=== PATIENT | male | born 1975 | race Caucasian/White ===

== ENCOUNTER 2016-11-25 07:32 | Emergency (ER) | payer SELFPAY ==
[~2016-11-25] VITALS: Ht 180.3 cm; Wt 90.7 kg
[2016-11-25 07:35] VITALS: BP 119/78
[2016-11-25] MEDS ORDERED: HYDR-971 PO (07:50)
[2016-11-25] MEDS ORDERED: IBUP-1060 PO (07:50)
[2016-11-25] MEDS ORDERED: AMOX500C PO (07:50)
--- NOTE | 2016-11-25 07:50 | PHYS DOC ---
Past Medical History Past Medical History: No Pertinent History Past Surgical History: No Surgical History Alcohol Use: Rarely Drug Use: None Adult General Chief Complaint Chief Complaint: DENTAL PROBLEM HPI HPI Patient is a 41 year old male presents to the ED complaining of left lower tooth pain x 2 days. Patient states he bit into a piece of pizza and felt instant pain in his tooth. Patient states he has not been able to chew anything since then. Describes pain as sharp. Rates pain as 9 out of 10 when chewing. Patient able to tolerate liquids and soft food. Denies to swelling, fever, nausea, vomiting, chest pain, shortness of breath, or dizziness. Review of Systems Review of Systems Constitutional: Denies fever or chills [] Eyes: Denies change in visual acuity, redness, or eye pain [] HENT: Denies nasal congestion or sore throat [] Respiratory: Denies cough or shortness of breath [] Cardiovascular: No additional information not addressed in HPI [] GI: Denies abdominal pain, nausea, vomiting, bloody stools or diarrhea [] : Denies dysuria or hematuria [] Musculoskeletal: Denies back pain or joint pain [] Integument: Denies rash or skin lesions [] Neurologic: Denies headache, focal weakness or sensory changes [] Endocrine: Denies polyuria or polydipsia [] Allergies Allergies Allergies Coded Allergies Type Severity Reaction Last Updated Verified No Known Drug Allergies 09/12/13 No Physical Exam Physical Exam Constitutional: Well developed, well nourished, no acute distress, non-toxic appearance. [] HENT: Normocephalic, atraumatic, bilateral external ears normal, oropharynx moist, no oral exudates, MILD LEFT LOWER DENTAL CARIES. NO SWELLING/ABSCESS OR FLUCTUANCE. nose normal. [] Eyes: PERRLA, EOMI, conjunctiva normal, no discharge. [] Neck: Normal range of motion, no tenderness, supple, no stridor. [] Cardiovascular:Heart rate regular rhythm, no murmur [] Lungs & Thorax: Bilateral breath sounds clear to auscultation [] Abdomen: Bowel sounds normal, soft, no tenderness, no masses, no pulsatile masses. [] Skin: Warm, dry, no erythema, no rash. [] Back: No tenderness, no CVA tenderness. [] Extremities: No tenderness, no cyanosis, no clubbing, ROM intact, no edema. [] Neurologic: Alert and oriented X 3, normal motor function, normal sensory function, no focal deficits noted. [] Psychologic: Affect normal, judgement normal, mood normal. [] Current Patient Data Vital Signs Vital Signs Date Time Temp Pulse Resp B/P (MAP) Pulse Ox O2 Delivery O2 Flow Rate FiO2 11/25/16 07:35 98.0 88 18 119/78 (92) 99 Room Air 98.0 EKG EKG [] Radiology/Procedures Radiology/Procedures [] Course & Med Decision Making Course & Med Decision Making Pertinent Labs and Imaging studies reviewed. (See chart for details) []Patient given dental clinic handout. No abscess or fluctuance. Amoxicillin prescribed. Discussed the importance of follow-up and reasons to return to the ED. Patient understands and agrees with plan. Dragon Disclaimer Dragon Disclaimer This electronic medical record was generated, in whole or in part, using a voice recognition dictation system. Departure Departure Impression: Primary Impression: Dental caries Additional Impression: Pain, dental Disposition: 01 HOME, SELF-CARE Condition: STABLE Referrals: REAGAN ZAMBRANO MD (PCP) Patient Instructions: Dental Caries Scripts Ibuprofen (IBUPROFEN) 800 Mg Tablet 800 MG PO PRN Q6HRS Y for INFLAMMATION, #20 TAB Prov: WANDA CONTEH 11/25/16 Hydrocodone/Apap 5-325 (NORCO 5-325 TABLET) 1 Each Tablet 1 TAB PO BID, #8 TAB Prov: WANDA CONTEH 11/25/16 Amoxicillin (AMOXICILLIN) 500 Mg Capsule 500 MG PO TID for 10 Days, #30 CAP 0 Refills Prov: WANDA CONTEH 11/25/16 Problem Qualifiers WANDA CONTEH Nov 25, 2016 07:50
== END 2016-11-25 07:55 | disposition home or self-care (01) ==
LOC: ER 07:32
DX: K02.9 Dental caries, unspecified (principal)
CPT/HCPCS: 99283

== ENCOUNTER 2018-02-23 16:22 | Emergency (ER) | payer SELFPAY ==
[~2018-02-23] VITALS: Ht 182.9 cm; Wt 104.3 kg
[~2018-02-23 16:22] MED LIST: AMOX500C PO; HYDR-3164 PO; IBUP-1060 PO
[2018-02-23 16:25] VITALS: BP 122/80
[2018-02-23] MEDS ORDERED: NAPR500T8 PO (17:02)
[2018-02-23] MEDS ORDERED: PENI500T PO (17:03)
--- NOTE | 2018-02-23 17:04 | PHYS DOC ---
Past Medical History Past Medical History: No Pertinent History Past Surgical History: No Surgical History Alcohol Use: None Drug Use: None Adult General Chief Complaint Chief Complaint: DENTAL PROBLEM HPI HPI Patient is a 42 year old male who presents to the emergency Department today with complaints of lower left dental pain with left facial swelling for the last 2 days. He denies any fever, however he reports having chills last night. Patient denies any ear pain, nausea, vomiting, rash, or difficulty swallowing. He states he is a smoker and smokes less than a pack cigarettes a day. Currently he rates his pain as a 7 out of 10 on the pain scale, he has been taking Tylenol for relief of the pain with little benefit. Review of Systems Review of Systems Constitutional: Denies fever or chills [] HENT: Denies nasal congestion or sore throat; see HPI [] Respiratory: Denies cough or shortness of breath [] Cardiovascular: No additional information not addressed in HPI [] GI: Denies abdominal pain, nausea, vomiting, or diarrhea [] Integument: Denies rash or skin lesions [] Neurologic: Denies headache, focal weakness or sensory changes [] Complete systems were reviewed and found to be within normal limits, except as documented in this note. Allergies Allergies Allergies Coded Allergies Type Severity Reaction Last Updated Verified Iodine and Iodide Containing Produc Allergy Severe SWELLING 02/23/18 Yes Physical Exam Physical Exam Constitutional: Well developed, well nourished, no acute distress, non-toxic appearance, obese. [] HENT: Normocephalic, atraumatic, bilateral external ears normal, lateral TMs normal, posterior pharynx normal, oropharynx moist, no oral exudates, nose normal; tooth #17 is grossly decayed with surrounding gingival erythema and edema no visible abscess, mild swelling to left side of face [] Eyes: conjunctiva normal, no discharge. [] Neck: Normal range of motion, no tenderness, supple, no stridor. [] Skin: Warm, dry, no erythema, no rash. [] Neurologic: Alert and oriented X 3, normal motor function, normal sensory function, no focal deficits noted. [] Psychologic: Affect normal, judgement normal, mood normal. [] EKG EKG [] Radiology/Procedures Radiology/Procedures [] Course & Med Decision Making Course & Med Decision Making Pertinent Labs and Imaging studies reviewed. (See chart for details) [] Dragon Disclaimer Dragon Disclaimer This electronic medical record was generated, in whole or in part, using a voice recognition dictation system. Departure Departure Impression: Primary Impression: Infected dental caries Additional Impression: Dentalgia Disposition: 01 HOME, SELF-CARE Condition: STABLE Referrals: REAGAN ZAMBRANO MD (PCP) Patient Instructions: Dental Caries-Brief, Dental Pain, [id number] Additional Instructions: Fill prescriptions and use as directed. Follow up with dentist using the referral list provided. Return to the ER if symptoms worsen. Scripts Penicillin V Potassium (PENICILLIN V POTASSIUM) 500 Mg Tablet 1 TAB PO QID, #40 TAB 0 Refills Prov: RENU MILLIGAN APRN 02/23/18 Naproxen (NAPROXEN) 500 Mg Tablet. 1 TAB PO BID PRN for PAIN for 10 Days, #20 TAB 0 Refills Prov: RENU MILLIGAN APRN 02/23/18 Problem Qualifiers RENU MILLIGAN APRN Feb 23, 2018 17:04
== END 2018-02-23 17:10 | disposition home or self-care (01) ==
LOC: ER 16:22
DX: K04.7 Periapical abscess without sinus (principal); F17.210 Nicotine dependence, cigarettes, uncomplicated; Z91.041 Radiographic dye allergy status
CPT/HCPCS: 99283